=== PATIENT | female | born 1970 | race Caucasian/White ===

== ENCOUNTER → 2017-02-27 | Outpatient (CLI) | payer OTHER ==
[~2017-02-27] MED LIST: AMIT25TA9 PO; FLUO27.5 PO; GABA800T PO; IBUP-103 PO; SNQ/25 PO
--- NOTE | 2017-03-02 08:49 | CODING QUERY NO DIAGNOSIS ---
: 1970 TREATMENT RENDERED WITHOUT A DIAGNOSIS To promote full compliance with coding requirements relating to patient care, physician participation is requested in all cases of loss control technician uncertainty. Please assist us with providing a diagnosis/symptom for the test(s) below: A diagnosis/symptom was not documented on your Order. A valid diagnosis/symptom is required to bill all insurances. Please remember that we are unable to code a diagnosis of rule out, probable, possible, questionable, or suspected. Tests that require a diagnosis: DOS: 02/27/17 PAP SMEAR DIAGNOSIS: Provider Signature: Date: Thank you Mayra Maxwell [employer] Once completed, please kindly fax back to [phone] For questions please call [phone]
== END | disposition home or self-care (01) ==
LOC: C.PAPS 14:35
PROVIDERS: ATTEND Physician Assistant
DX: Z12.4 Encounter for screening for malignant neoplasm of cervix (principal)

== ENCOUNTER → 2017-06-25 | Outpatient (CLI) | payer OTHER ==
--- NOTE | 2017-06-26 09:06 | MAMMOGRAPHY REPORT ---
BILATERAL DIGITAL DIAGNOSTIC MAMMOGRAM TOMOSYNTHESIS WITH CAD AND TARGETED RIGHT ULTRASOUND: 8 CLINICAL HISTORY: The patient reports pain and a possible lump in the right breast for approximately 5 weeks. She denies any associated skin erythema, nipple discharge, or other complaints. She also f eels some left breast pain as well. TECHNIQUE: Breast tomosynthesis in addition to standard 2D mammography was performed. Current study was also evaluated with a Computer Aided Detection (CAD) system. Bilateral CC and MLO 2-D and tomosy nthesis images and spot compression right CC 2-D and tomosynthesis images were obtained. COMPARISON: No prior exams were available for comparison. BREAST COMPOSITION: There are scattered areas of fibroglandular density in both breasts. FINDINGS: A square marker nix the site of pain and possible lump in the right lower inner quadrant pointed out by the patient. No suspicious masses or other suspicious mammographic abnormalities are noted in this region. There is an asymmetry seen within the right lateral breast on the cc view, wh ich is less prominent on the spot compression view and likely represents normal fibroglandular tissue . The remainder of both breasts demonstrate no suspicious masses, calcifications, or areas of luz ectural distortion. Targeted ultrasound was performed of the area of pain and possible lump pointed out by the patient, c entered around the right 6:00 periareolar breast. No suspicious masses or other suspicious sonograph ic abnormalities are evident. Ultrasound was also performed in the region of the mammographic asymme try in the right lateral breast at approximately 8 to 9:00. No suspicious masses or other suspicious sonographic abnormalities are evident. IMPRESSION: ACR-BI-RADS CATEGORY 3: PROBABLY BENIGN, TARGETED ULTRASOUND ACR-BI-RADS CATEGORY 3: PRO BABLY BENIGN 1. No suspicious mammographic or sonographic abnormality to explain right breast pain and possible l ump. Recommend clinical follow-up; any decision to biopsy should be based on clinical grounds. 2. Right lateral breast asymmetry, with no sonographic correlate evident. The asymmetry is probably benign and likely represents normal fibroglandular tissue. Recommend follow-up diagnostic tomosynth esis mammograms of the right breast in 6 months to confirm stability, given no priors available for c omparison. The patient has been verbally notified of the results. Approximately 10% of breast cancers are not detected with mammography. A negative mammographic report should not delay biopsy if a clinically suggestive mass is present. Stephania Bryant M.D. ah/:06/25/2017 11:40:29 Claims Director: Odalys ULLOA(Norma)(M), [facility] letter sent: Follow Up Recommended 3 BI-RADS Code: ACR-BI-RADS Category 3: Probably Benign Ultrasound BI-RADS: ACR-BI-RADS Category 3: Pr obably Benign
== END | disposition home or self-care (01) ==
LOC: C.MAMM 08:38
PROVIDERS: ATTEND Family Medicine
DX: N64.4 Mastodynia (principal); N64.89 Other specified disorders of breast

== ENCOUNTER → 2018-01-16 | Outpatient (CLI) | payer OTHER | END | disposition home or self-care (01) | LOC: C.LAB 00:23 | DX: Z02.83 Encounter for blood-alcohol and blood-drug test (principal) ==